=== PATIENT | male | born 1990 | race Two or more races ===

== ENCOUNTER 2024-01-21 22:32 | Emergency (ER) | payer OTHER ==
[~2024-01-21] VITALS: Ht 162.6 cm; Wt 68.0 kg
[2024-01-21 22:45] VITALS: TEMP 98.3
[2024-01-21 23:06] VITALS: BP 95/58; PULSE 84; RESP 18
== END 2024-01-22 02:12 ==
LOC: EMS 22:42
DX: F25.1 Schizoaffective disorder, depressive type (principal); F15.90 Other stimulant use, unspecified, uncomplicated
CPT/HCPCS: 93005; 99283